=== PATIENT | male | born 1975 | race Caucasian/White ===

== ENCOUNTER → 2022-02-06 | Outpatient (REF) | payer BC | LOC: M WUC 18:15 | PROVIDERS: ATTEND Internal Medicine | DX: M54.50 Low back pain, unspecified (principal); R30.0 Dysuria ==

== ENCOUNTER → 2022-02-23 | Outpatient (CLI) | payer BC | LOC: M WHC 07:58 | PROVIDERS: ATTEND Internal Medicine | DX: R94.5 Abnormal results of liver function studies (principal); K76.89 Other specified diseases of liver; K82.4 Cholesterolosis of gallbladder ==